=== PATIENT | female | born 1970 | race Native Hawaiian/Other Pacific Islander ===

== ENCOUNTER 2017-08-22 09:13 | Emergency (ER) | payer OTHER ==
[2017-08-22 09:22] VITALS: TEMP 98.2; O2SAT 100
--- NOTE | 2017-08-22 09:44 | C.PDOC ---
History Of Present Illness Pt slipped down stair. Pt woke up with mild headache today. - HPI Time Seen by Provider: 08/22/17 09:34 Chief Complaint (Nursing): Trauma History Per: Patient Injury Occurred (Timing): Days Ago: (2) Description Of Injury (Context): Slipped and fell down stairs. No LOC. Location Of Injury: Right: Back, Buttock, Elbow Severity: Mild Additional History Per: Prior Records - Fall Fall:Prior To Injury: Slipped Past Medical History Reviewed: Historical Data, Nursing Documentation, Vital Signs Vital Signs: Last Vital Signs Temp 98.2 F 08/22/17 09:21 Pulse 78 08/22/17 09:21 Resp 16 08/22/17 09:21 BP 118/78 08/22/17 09:21 Pulse Ox 100 08/22/17 09:21 - Medical History PMH: No Chronic Diseases Family History: States: Unknown Family Hx - Social History Hx Alcohol Use: No Hx Substance Use: No - Immunization History Hx Tetanus Toxoid Vaccination: No Hx Influenza Vaccination: No Hx Pneumococcal Vaccination: No Review Of Systems Except As Marked, All Systems Reviewed And Found Negative. Constitutional: Negative for: Fever, Weakness Eyes: Negative for: Pain, Vision Change Cardiovascular: Negative for: Chest Pain Respiratory: Negative for: Shortness of Breath Gastrointestinal: Negative for: Nausea, Vomiting, Abdominal Pain Genitourinary: Negative for: Hematuria Musculoskeletal: Negative for: Neck Pain Skin: Positive for: Bruising. Negative for: Rash Neurological: Positive for: Headache. Negative for: Weakness, Numbness, Incoordination, Change in Speech, Confusion, Seizures, Altered Mental Status, Dizziness Physical Exam - Physical Exam Appears: Non-toxic, No Acute Distress Skin: Warm, Dry, Ecchymosis Head: Atraumatic, Normacephalic Eye(s): bilateral: Normal Inspection, PERRL, EOMI Neck: Normal ROM, No Midline Cervical Tenderness, No Step Off Deformity, Supple Chest: Symmetrical, No Deformity Cardiovascular: Rhythm Regular Respiratory: Normal Breath Sounds, No Accessory Muscle Use Gastrointestinal/Abdominal: Soft, No Tenderness Back: No CVA Tenderness, No Vertebral Tenderness, Other (contusions on right side of back) Extremity: Normal ROM, No Tenderness, Capillary Refill (wnl), No Deformity, Other (Contusions on right buttock and right elbow/forearm) Extremity: Bilateral: Hips Non-Tender, Normal ROM, Pelvis-Stable Pulses: Right Radial: Normal Neurological/Psych: Oriented x3, Normal Speech, Normal Cognition, Normal Motor, Normal Sensation ED Course And Treatment O2 Sat by Pulse Oximetry: 100 Pulse Ox Interpretation: Normal Disposition Counseled Patient/Family Regarding: Studies Performed, Diagnosis, Need For Followup - Disposition Disposition: HOME/ ROUTINE Disposition Time: 09:46 Condition: STABLE Additional Instructions: Follow up with your doctor within 2 days. Return to the ER if you develop severe headache, vomiting, weakness, numbness, confusion, worsening of symptoms or if you have any other concerns. Instructions: Contusion in Adults (ED), General Headache (ED) - Clinical Impression Clinical Impression: Multiple contusions, Headache
[2017-08-22 09:55] VITALS: BP 111/78; PULSE 69; RESP 18
== END 2017-08-22 10:01 | disposition home or self-care (01) ==
LOC: C.ER 09:13
DX: R51 Headache (principal); S30.0XXA Contusion of lower back and pelvis, initial encounter; S50.11XA Contusion of right forearm, initial encounter; W10.9XXA Fall (on) (from) unspecified stairs and steps, initial encounter